=== PATIENT | female | born 1945 | race Caucasian/White ===

== ENCOUNTER → 2018-04-03 | Outpatient (CLI) | payer MEDICARE ==
--- NOTE | 2018-04-06 08:32 | MM ---
Reason for exam: screening (asymptomatic). History: Patient is postmenopausal. Family history of breast cancer in cousin at age 51. Took estrogen for 2 years. MG Screening Mammo w CAD Bilateral CC and MLO view(s) were taken. The breast tissue is heterogeneously dense. This may lower the sensitivity of mammography. There are benign-appearing round vascular bilateral breast calcifications. No discrete abnormality. ASSESSMENT: Benign, BI-RAD 2 RECOMMENDATION: Routine screening mammogram of both breasts in 1 year.
== END | disposition home or self-care (01) ==
LOC: RADMAMWWP 10:46
PROVIDERS: ATTEND Family Medicine
DX: Z12.31 Encounter for screening mammogram for malignant neoplasm of breast (principal)
CPT/HCPCS: 77067

== ENCOUNTER → 2019-12-19 | Outpatient (CLI) | payer MEDICARE ==
--- NOTE | 2019-12-22 10:36 | MM ---
Reason for exam: screening (asymptomatic). Last mammogram was performed 1 year and 9 months ago. History: Patient is postmenopausal. Family history of breast cancer in cousin at age 51. Took estrogen for 2 years. Physical Findings: A clinical breast exam by your physician is recommended on an annual basis and results should be correlated with mammographic findings. MG 3D Screening Mammo W/Cad Bilateral CC and MLO view(s) were taken. Prior study comparison: April 03, 2018, bilateral MG screening mammo w CAD. The breast tissue is heterogeneously dense. This may lower the sensitivity of mammography. There are benign appearing round, vascular calcifications bilaterally. There is no discrete abnormality. ASSESSMENT: Benign, BI-RAD 2 RECOMMENDATION: Routine screening mammogram of both breasts in 1 year.
== END | disposition home or self-care (01) ==
LOC: RADMAMWWP 07:30
PROVIDERS: ATTEND Family Medicine
DX: Z12.31 Encounter for screening mammogram for malignant neoplasm of breast (principal)
CPT/HCPCS: 77063; 77067

== ENCOUNTER → 2020-04-28 | Outpatient (CLI) | payer MEDICARE ==
[2020-04-28 23:30] LABS: Chol/HDL Ratio 3.49
== END | disposition home or self-care (01) ==
LOC: LABWHC1 08:13
PROVIDERS: ATTEND Nurse Practitioner Adult Health
DX: E78.5 Hyperlipidemia, unspecified (principal)
CPT/HCPCS: 36415; 80061

== ENCOUNTER → 2020-05-26 | Outpatient (CLI) | payer MEDICARE ==
[2020-05-26 08:45] LABS: African American GFR (CKD) >90 (>60 ml/min/1.73 sqM); Anion Gap 10 mmol/L; Blood Urea Nitrogen 15 mg/dL (7-17); Carbon Dioxide 30 mmol/L (22-30); Chloride 97 mmol/L (98-107); Non-African American GFR(CKD) 89 (>60 ml/min/1.73 sqM); Potassium 4.9 mmol/L (3.5-5.1); Sodium 137 mmol/L (137-145)
[2020-05-26 08:56] LABS: HCT 38.4 % (34.0-46.0); HGB 13.2 gm/dL (11.4-16.0); MCH 34.2 pg (25.0-35.0); MCHC 34.5 g/dL (31.0-37.0); MCV 99.2 fL (80.0-100.0); Mean Platelet Volume 7.2; Platelet Count 233 k/uL (150-450); RBC 3.87 m/uL (3.80-5.40); RDW 12.3 % (11.5-15.5); WBC 5.6 k/uL (3.8-10.6)
== END | disposition home or self-care (01) ==
LOC: LABPAT 07:20
PROVIDERS: ATTEND Internal Medicine Interventional Cardiology
DX: Z01.812 Encounter for preprocedural laboratory examination (principal); R94.39 Abnormal result of other cardiovascular function study
CPT/HCPCS: 36415; 80051; 82565; 84520; 85027

== ENCOUNTER 2020-05-27 06:18 | Day surgery (SDC) | payer MEDICARE ==
[2020-05-25 10:09] VITALS: BMI 25.4
[~2020-05-27 06:18] MED LIST: ALPRAZolam 0.25 MG TAB PO PRN; ALPRAZolam 0.5 MG TAB PO PRN; HEPARIN SODIUM,PORCINE 10,000 UNIT in SODIUM CHLORIDE 0.9% 1,000 ML IRRIGATION PRN; HEPARIN SODIUM,PORCINE 2,500 UNIT in SODIUM CHLORIDE 0.9% 250 ML IRRIGATION PRN; NITROGLYCERIN SL TABS 0.4 MG TAB SUBLINGUAL PRN; SODIUM CHLORIDE 0.9% 1,000 ML in EMPTY BAG 1 BAG IV ONE
[2020-05-27] MEDS ORDERED: SODIUM CHLORIDE 0.9% 1,000 ML IV ONE (06:35)
[2020-05-27] MEDS ORDERED: ASPIRIN 325 MG TAB PO ONE (07:00)
[2020-05-27] MEDS ORDERED: ATORVASTATIN 80 MG TAB PO ONE (07:00)
[2020-05-27 07:02] LABS: Basophils # (A) 0.1 k/uL (0-0.2); Basophils % (A) 1 %; Eosinophils # (A) 0.4 k/uL (0-0.7); Eosinophils % (A) 6 %; HCT 41.1 % (34.0-46.0); HGB 13.9 gm/dL (11.4-16.0); Lymphocytes # (A) 2.1 k/uL (1.0-4.8); Lymphocytes % (A) 39 %; MCH 33.3 pg (25.0-35.0); MCHC 33.9 g/dL (31.0-37.0); MCV 98.3 fL (80.0-100.0); Mean Platelet Volume 7.1; Monocytes # (A) 0.4 k/uL (0-1.0); Monocytes % (A) 7 %; Neutrophils # (A) 2.4 k/uL (1.3-7.7); Neutrophils % (A) 44 %; Platelet Count 266 k/uL (150-450); RBC 4.18 m/uL (3.80-5.40); WBC 5.5 k/uL (3.8-10.6)
[2020-05-27 07:11] VITALS: RESP 16; TEMP 98.3
[2020-05-27 07:15] LABS: African American GFR (CKD) >90 (>60 ml/min/1.73 sqM); Anion Gap 8 mmol/L; Blood Urea Nitrogen 16 mg/dL (7-17); Calcium 10.1 mg/dL (8.4-10.2); Carbon Dioxide 29 mmol/L (22-30); Chloride 100 mmol/L (98-107); Glucose 104 mg/dL (74-99); Non-African American GFR(CKD) >90 (>60 ml/min/1.73 sqM); Potassium 4.2 mmol/L (3.5-5.1); Sodium 137 mmol/L (137-145)
[2020-05-27] MEDS ORDERED: MIDAZOLAM 2 MG/2 ML VIAL IV ONE (08:10)
[2020-05-27] MEDS: LIDOCAINE 1% INJ 10MG/ML (20 ML MDV) SQ ONE ×2 (08:11→08:16)
[2020-05-27] MEDS ORDERED: VERAPAMIL SYRINGE (5 MG/10 ML) INTRAARTER ONE (08:13)
[2020-05-27] MEDS ORDERED: IOPAMIDOL-370 125ML BTL INJ ONE (08:26)
[2020-05-27] MEDS ORDERED: RX INFO: IV CONTRAST WAS GIVEN 1 EACH MISC MISCELLANE PRN (08:33)
[2020-05-27] MEDS ORDERED: SODIUM CHLORIDE 0.9% 1,000 ML IV SCH (08:45)
--- NOTE | 2020-05-27 09:30 | CC ---
CARDIAC CATHETERIZATION REPORT DATE OF SERVICE: May 27, 2020 PERFORMING PHYSICIAN: Olman Gresham MD. PROCEDURE PERFORMED: 1. Selective right and left coronary angiogram. 2. Left heart catheterization. INDICATION: This is a 74-year-old female patient who continues to be symptomatic in term of chest discomfort and shortness of breath. She underwent myocardial perfusion imaging stress test and that came into be suspicious and because of that, a heart catheterization was advised. APPROACH: Right radial artery and right common femoral artery. COMPLICATION: None. LEVEL OF SEDATION: Moderate with sedation length of 20 minutes. PROCEDURE DESCRIPTION: After obtaining an informed consent, the patient was brought to the cardiac medical lab director. Initially I attempted accessing the right radial artery, but that was unsuccessful and because of that I decided to go from the groin. The right common femoral artery was cannulated using micropuncture technique, the micropuncture wire passed easily then I placed a 6-Hungarian sheath at the right radial artery. After that I did selective right and left coronary angiogram with JR3.5 and JL3.5 catheters. Left heart catheterization was performed using 5-Hungarian pigtail catheter. The procedure was completed without any complication. SELECTIVE CORONARY ANGIOGRAM: 1. The RCA is a large caliber vessel. It is a dominant vessel. The RCA has mild disease only. Distally, it bifurcates into PDA and PLV branches, both appear to be angiographically normal. 2. The left main is angiographically normal. It bifurcates into LCX and LAD. 3. The LCX is a large caliber vessel. It is a nondominant vessel. The LCX is angiographically normal. In the midportion, it gives rise into a large OM branch which bifurcates into 2 subbranches both appeared to be angiographically normal. 4. The LAD: The proximal LAD has mild disease only. The mid LAD has a tubular lesion appeared to be in the range of 40% to 50% maximum. The LAD distally appeared to be angiographically normal. HEMODYNAMICS: The LVEDP was 15 mmHg without significant gradient across the aortic valve. 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 POSTPROCEDURE MANAGEMENT: 1. Aggressive cholesterol control. 2. Risk factor modifications. 3. Follow up with the patient. MMODL / IJN: [id number] /
--- NOTE | 2020-05-27 09:35 | LTR ---
May 27, 2020 Re: Sharonclaudy Wall Dear Dr. Nunez: Ms. Sharon Wall underwent today heart catheterization and that revealed mild to moderate nonobstructive coronary artery disease and I advised the patient maximize medical treatment including aggressive cholesterol control and risk factor modifications. I want to thank you for allowing me to participate in her care and please do not hesitate to call if you have any question or concern. Sincerely, MD AMADA Lopez / SUSAN: [id number] /
[2020-05-27 13:16] VITALS: PULSE 64
[2020-05-27 15:31] VITALS: BP 127/84
== END 2020-05-27 15:29 | disposition home or self-care (01) ==
LOC: CATHCVL 06:18
PROVIDERS: ATTEND Internal Medicine Interventional Cardiology
DX: I25.110 Atherosclerotic heart disease of native coronary artery with unstable angina pectoris (principal); I10 Essential (primary) hypertension; R94.39 Abnormal result of other cardiovascular function study; E78.00 Pure hypercholesterolemia, unspecified; E03.9 Hypothyroidism, unspecified; E78.5 Hyperlipidemia, unspecified; M19.90 Unspecified osteoarthritis, unspecified site; Z79.82 Long term (current) use of aspirin; Z79.890 Hormone replacement therapy; Z79.899 Other long term (current) drug therapy; Z88.6 Allergy status to analgesic agent; Z88.5 Allergy status to narcotic agent; Z88.0 Allergy status to penicillin; Z88.8 Allergy status to other drugs, medicaments and biological substances
CPT/HCPCS: 93458; 80048; 85025; C1769 ×2; C1894; J2250; J2001; Q9967

== ENCOUNTER 2020-09-09 09:22 | Day surgery (SDC) | payer MEDICARE ==
[2020-09-09 10:01] VITALS: RESP 18; TEMP 98.1
[2020-09-09 10:29] VITALS: BP 142/88; PULSE 64
--- NOTE | 2020-09-09 10:42 | US ---
ULTRASOUND GUIDED FNA THYROID BIOPSY: CLINICAL HISTORY: Right thyroid nodule FINDINGS: The procedure was explained to the patient. The risks, complications, benefits and alternatives were discussed and any questions were answered. Informed consent was obtained. Patient was placed supin e on the ultrasound table and prepped and draped in the usual sterile fashion. Utilizing a 25 gauge needle, five passes were made into the requested right thyroid nodule. Patient was stable throughout the procedure. Pathology is pending. All elements of maximal barrier technique were utilized. IMPRESSION: 1. Successful ultrasound guided FNA thyroid biopsy.
== END 2020-09-09 10:50 | disposition home or self-care (01) ==
LOC: RADPROMAIN 09:22
PROVIDERS: ATTEND Family Medicine
DX: D34 Benign neoplasm of thyroid gland (principal)
CPT/HCPCS: 10005; 88173; 88305

== ENCOUNTER 2020-12-17 07:11 | Emergency (ER) | payer MEDICARE ==
[2020-12-17 07:17] VITALS: BP 160/90; PULSE 70; RESP 18; TEMP 98
--- NOTE | 2020-12-17 07:30 | ED ---
General Adult HPI - General Chief complaint: Extremity Injury, Lower Stated complaint: RT foot injury Time Seen by Provider: 12/17/20 07:19 Source: patient Mode of arrival: wheelchair Limitations: no limitations - History of Present Illness Initial comments: Dictation was produced using Efer[employer] dictation software. please excuse any grammatical, word or spelling errors. Chief Complaint: 75-year-old female presents with right foot injury History of Present Illness: Is 75-year-old female she reports that she has a past medical history of fibromyalgia. She this morning was walking in the dark when she tripped over the cat and had an inversion injury to her right foot and ankle. Patient states she had pain. She noticed a little bit of bruising over the dorsum of the foot just over the metatarsal head. Patient has no other complaints. The ROS documented in this emergency department record has been reviewed and confirmed by me. Those systems with pertinent positive or negative responses have been documented in the HPI. All other systems are other negative and/or noncontributory. PHYSICAL EXAM: General Impression: Alert and oriented x3, not in acute distress HEENT: Normocephalic atraumatic, extra-ocular movements intact, pupils equal and reactive to light bilaterally, mucous membranes moist. Musculoskeletal: Pulses present and equal in all extremities, no peripheral edema Motor: no focal deficits noted Neurological: CN II-XII grossly intact, no focal motor or sensory deficits noted Skin: Intact with no visualized rashes Psych: Normal affect and mood Right foot: Small localized area of hematoma over the fifth metatarsal head dorsally. Patient has no tenderness to the malleoli or the base of the fifth metatarsal. ED course: 75-year-old female presents with right foot injury suffered this morning after inversion injury. Vital signs upon arrival are within acceptable limits. Foot x-ray shows comminuted slightly displaced fracture of the distal diaphysis fifth metatarsal. Patient placed in a posterior mold splint. She is counseled on nonweightbearing to the right foot. Patient offered crutches however she states that she can use crutches and she has a wheelchair at home. Patient be discharged with outpatient follow-up with foot and ankle specialist. - Related Data Home Medications Medication Instructions Recorded Confirmed Alendronate Sodium [Fosamax] 70 mg PO TH 05/07/20 09/09/20 Aspirin [Adult Low Dose Aspirin EC] 81 mg PO DAILY 05/07/20 09/09/20 Ezetimibe [Zetia] 10 mg PO DAILY 05/07/20 09/09/20 Levothyroxine Sodium [Synthroid] 50 mcg PO DAILY 05/07/20 09/09/20 Multivitamin/Iron/Folic Acid 1 each PO DAILY 05/07/20 09/09/20 [Centrum Adults Tablet] [place]-3 Fatty Acids [[place]-3] 2 tab PO DAILY 05/07/20 09/09/20 Omeprazole [PriLOSEC] 20 mg PO AC-BRKFST 05/07/20 09/09/20 Allergies Allergy/AdvReac Type Severity Reaction Status Date / Time Penicillins Allergy Rash/Hives Verified 12/17/20 07:12 Sulfa (Sulfonamide Allergy Anaphylaxis Verified 12/17/20 07:12 Antibiotics) meloxicam AdvReac Nausea & Verified 12/17/20 07:12 Vomiting morphine AdvReac Unknown Verified 12/17/20 07:12 tramadol AdvReac Nausea & Verified 12/17/20 07:12 Vomiting dyes on pills Allergy Rash/Hives Uncoded 09/09/20 10:00 Review of Systems ROS Statement: Those systems with pertinent positive or pertinent negative responses have been documented in the HPI. ROS Other: All systems not noted in ROS Statement are negative. Past Medical History Past Medical History: Blood Disorder, Fibromyalgia, GERD/Reflux, Hyperlipidemia, Osteoarthritis (OA), Thyroid Disorder Additional Past Medical History / Comment(s): osteoporosis. short of breath. diverticulitis,. PE - on ASA History of Any Multi-Drug Resistant Organisms: None Reported Past Surgical History: Appendectomy, Heart Catheterization, Hernia Repair, Hysterectomy, Tonsillectomy Past Anesthesia/Blood Transfusion Reactions: Previous Problems w/ Anesthesia, Family History of Problems w/ Anesthesia Additional Past Anesthesia/Blood Transfusion Reaction / Comment(s): hard time waking up after hysterectomy. takes extra anesthesia for brother Past Psychological History: Depression Smoking Status: Never smoker Past Alcohol Use History: Rare Past Drug Use History: None Reported - Past Family History Mother Family Medical History: Cancer Father Family Medical History: Cancer General Exam Limitations: no limitations Course Vital Signs 12/17/20 07:13 Temperature 98 F Pulse Rate 70 Respiratory 18 Rate Blood Pressure 160/90 O2 Sat by Pulse 98 Oximetry Disposition Clinical Impression: Foot fracture Disposition: HOME SELF-CARE Condition: Fair Instructions (If sedation given, give patient instructions): Foot Fracture in Adults (ED) Is patient prescribed a controlled substance at d/c from ED?: No Referrals: Aditya Sanchez MD [Medical Doctor] - 1-2 days
--- NOTE | 2020-12-17 07:59 | XR ---
EXAMINATION TYPE: XR foot complete RT DATE OF EXAM: 12/17/2020 CLINICAL HISTORY: Tripping injury with pain and swelling laterally. TECHNIQUE: Frontal, lateral, and oblique images of the left foot are obtained. COMPARISON: None FINDINGS: The osseous structures are demineralized. There is no acute comminuted slightly displaced f racture of distal diaphysis fifth metatarsal. Small inferior calcaneal spur. Flexion in the toes. The joint spaces in the left foot appear within normal limits. Mild diffuse subcutaneous edema. IMPRESSION: There is acute comminuted slightly displaced fracture distal diaphysis fifth metatarsal.
== END 2020-12-17 08:39 | disposition home or self-care (01) ==
LOC: EC 07:11
DX: S92.351A Displaced fracture of fifth metatarsal bone, right foot, initial encounter for closed fracture (principal); E78.5 Hyperlipidemia, unspecified; K21.9 Gastro-esophageal reflux disease without esophagitis; M19.90 Unspecified osteoarthritis, unspecified site; E07.9 Disorder of thyroid, unspecified; M81.0 Age-related osteoporosis without current pathological fracture; F32.9 Major depressive disorder, single episode, unspecified; Z79.82 Long term (current) use of aspirin; Z88.0 Allergy status to penicillin; Z88.1 Allergy status to other antibiotic agents; Z88.2 Allergy status to sulfonamides; Z88.5 Allergy status to narcotic agent; Z90.49 Acquired absence of other specified parts of digestive tract; Z90.710 Acquired absence of both cervix and uterus; Z90.89 Acquired absence of other organs; W01.10XA Fall on same level from slipping, tripping and stumbling with subsequent striking against unspecified object, initial encounter; Y93.01 Activity, walking, marching and hiking
CPT/HCPCS: 29515; 99283

== ENCOUNTER → 2020-12-24 | Outpatient (CLI) | payer MEDICARE | END | disposition home or self-care (01) | LOC: LABWHC1 13:08 | PROVIDERS: ATTEND Orthopaedic Surgery | DX: M79.671 Pain in right foot (principal) | CPT/HCPCS: 36415; 82306 ==

== ENCOUNTER → 2021-02-18 | Outpatient (CLI) | payer MEDICARE ==
--- NOTE | 2021-02-22 10:10 | MM ---
Reason for exam: screening (asymptomatic). Last mammogram was performed 1 year and 2 months ago. History: Patient is postmenopausal. Family history of breast cancer in cousin at age 51. Took hormonal contraceptives for 3 years. Took estrogen for 2 years. Physical Findings: A clinical breast exam by your physician is recommended on an annual basis and results should be correlated with mammographic findings. MG Screening Mammo w CAD Bilateral CC and MLO view(s) were taken. Prior study comparison: December 19, 2019, bilateral MG 3d screening mammo w/cad. April 03, 2018, bilateral MG screening mammo w CAD. The breast tissue is heterogeneously dense. This may lower the sensitivity of mammography. No significant changes when compared with prior studies. ASSESSMENT: Benign, BI-RAD 2 RECOMMENDATION: Routine screening mammogram of both breasts in 1 year.
== END | disposition home or self-care (01) ==
LOC: RADMAMWWP 07:56
PROVIDERS: ATTEND Family Medicine
DX: Z12.31 Encounter for screening mammogram for malignant neoplasm of breast (principal)
CPT/HCPCS: 77067

== ENCOUNTER → 2021-03-22 | Outpatient (CLI) | payer MEDICARE ==
[2021-03-22 12:56] LABS: Chol/HDL Ratio 2.45 Ratio; LDL Cholesterol,Calculated 88.8 mg/dL (0.0-131.0)
== END | disposition home or self-care (01) ==
LOC: LABWHC1 07:14
PROVIDERS: ATTEND Nurse Practitioner Adult Health
DX: E78.5 Hyperlipidemia, unspecified (principal)
CPT/HCPCS: 36415; 80061

== ENCOUNTER → 2021-06-09 | Outpatient (CLI) | payer MEDICARE ==
--- NOTE | 2021-06-09 10:34 | MR ---
EXAMINATION TYPE: MR shoulder RT wo con DATE OF EXAM: 06/09/2021 COMPARISON: No radiographic correlation available HISTORY: 75-year-old female M67.813, Right shoulder pain 3-4 Months TECHNIQUE: Multiplanar, multisequence imaging of the right shoulder is performed without contrast. FINDINGS: The technologist reports that the patient was moving due to spasms. Coronal sequences repeated. There is an interstitial tear within the intracapsular portion of the biceps tendon that extends to t he biceps anchor. There is slight medial subluxation of the tendon within the bicipital secondary to interstitial teari ng of the subscapularis tendon. The subscapularis tendon is heterogeneous but the majority remains in tact. There is moderate to severe degenerative change at the AC joint characterized by joint space narrowin g, subchondral cystic change, small joint effusion, marginal spurring, and capsular hypertrophy. Ther e is impingement onto the underlying myotendinous junction of the supraspinatus. Trace fluid within the subacromial/subdeltoid bursa. Diffuse heterogeneity of both supraspinatus and infraspinatus tendons. There is a tear involving the mid to posterior supraspinatus tendon fibers. Anteriorly, this shows articular sided communication. T he tear shows intrasubstance extension posteriorly measuring up to 1.3 cm long-and appears to exit th e bursal surface on coronal images 14 and 15. Total AP dimension of 1.6 cm. The infraspinatus tendon appears intact. No significant atrophy of the rotator cuff musculature. There is at least moderate degenerative change at the glenohumeral joint with irregular cartilage los s throughout, more severe along the superior half of the humeral head articular surface. Subchondral cystic change inferior glenoid measuring up to 6 mm. Minimal spurring is present. Irregular and torn superior labrum extending from the biceps anchor down to the superior aspect of th e posterior labrum. Mild linear multiple joint effusion. Inferior loose body measures up to 7 mm within the axillary rece ss. No Hill-Sachs deformity or os acromiale. Prominent cystic change within the anterior greater tuberosi ty reactive to rotator cuff tendinosis. No suspicious bone marrow replacement. IMPRESSION: 1. Diffuse rotator cuff tendinosis. There is a tear of the supraspinatus tendon that communicates wit h the articular side at the mid portion of the tendon. The tear extends back and exits the bursal bartolo face posteriorly (total dimension 1.6 cm AP and up to 1.3 cm long). 2. Additional attritional tear of the subscapularis tendon allowing for slight medial subluxation of the long head biceps tendon in the upper bicipital groove. No rotator cuff muscle atrophy. 3. Moderate glenohumeral joint OA. Mild joint effusion and a 7 mm loose body in the axillary recess. 4. Superior labral tear extending into the biceps anchor and proximal long head biceps tendon. 5. Moderate to severe AC joint OA with subacromial impingement.
== END | disposition home or self-care (01) ==
LOC: RADMRIMAIN 07:36
PROVIDERS: ATTEND Internal Medicine Rheumatology
DX: M19.011 Primary osteoarthritis, right shoulder (principal); S43.431A Superior glenoid labrum lesion of right shoulder, initial encounter; M24.011 Loose body in right shoulder; M25.411 Effusion, right shoulder; S43.111A Subluxation of right acromioclavicular joint, initial encounter; M75.111 Incomplete rotator cuff tear or rupture of right shoulder, not specified as traumatic; X58.XXXA Exposure to other specified factors, initial encounter

== ENCOUNTER → 2022-02-27 | Outpatient (CLI) | payer MEDICARE ==
[2022-02-27 11:15] LABS: African American GFR (CKD) 101.2 (60.0-200.0); Albumin 4.9 g/dL (3.8-4.9); Albumin/Globulin Ratio 1.96 (1.60-3.17); Anion Gap 10.8 mmol/L (10.00-18.00); BUN/Creat Ratio 21.83 Ratio (12.00-20.00); Blood Urea Nitrogen 13.1 mg/dL (9.0-27.0); Calcium 10.4 mg/dL (8.7-10.3); Carbon Dioxide 27.2 mmol/L (20.0-27.5); Globulin 2.5 g/dL (1.6-3.3); Non-African American GFR(CKD) 87.3 (60.0-200.0); Potassium 4.4 mmol/L (3.5-5.5); T4, Free (Free Thyroxine) 1.38 ng/dL (0.800-1.800); Total Bilirubin 0.6 mg/dL (0.30-1.20); Total Protein 7.4 g/dL (6.2-8.2)
== END | disposition home or self-care (01) ==
LOC: LABWHC1 07:46
PROVIDERS: ATTEND Internal Medicine
DX: M81.0 Age-related osteoporosis without current pathological fracture (principal); E04.2 Nontoxic multinodular goiter; E55.9 Vitamin D deficiency, unspecified
CPT/HCPCS: 36415; 80053; 82306; 82523; 84439; 84443

== ENCOUNTER → 2022-03-01 | Outpatient (CLI) | payer MEDICARE ==
--- NOTE | 2022-03-01 09:33 | US ---
EXAMINATION TYPE: US thyroid st tissue head/neck DATE OF EXAM: 03/01/2022 COMPARISON: US biopsy CLINICAL HISTORY: E04.2 NONTOXIC MULTINODULAR GOITER. GLAND SIZE: Right Lobe: 4.7 x 1.8 x 2.5 cm Overall Parenchyma: heterogenous Left Lobe: 4.4 x 1.0 x 2.7 cm Overall Parenchyma: heterogeneous Isthmus Thickness: 0.3 cm NODULES RIGHT: # of nodules measured on right: 1. 1.0 X 0.8 x 0.9 cm, upper, solid or almost completely solid, No prior at this facility. TIRADS Score: 4 TIRADS Category 4: Moderately Suspicious Composition: Solid or almost completely solid (2 points). Echogenicity: Hypoechoic (2 points). Shape: Wider than tall (0 points). Margin: Smooth (0 points). Echogenic foci: None or large comet-tail artifacts (0 points) Recommendation: If >1.5cm: FNA; If >1cm: Follow up at 1,3,5 years 2. 2.2 X 1.4 x 1.8 cm, lower, No prior at this facility. TIRADS Score: 3 TIRADS Category 3: Mildly Suspicious Composition: Solid or almost completely solid (2 points). Echogenicity: Hyperechoic or isoechoic (1 point). Shape: Wider than tall (0 points). Margin: Smooth (0 points). Echogenic foci: None or large comet-tail artifacts (0 points) Recommendation: If >2.5cm: FNA; If >1.5cm: Follow up at 1,3,5 years LEFT: # of nodules measured on left: 1 1. 1.3 X 0.8 x 1.1 cm, mid, solid or almost completely solid, No prior at this facility. TIRADS Score: 3 TIRADS Category 3: Mildly Suspicious Composition: Solid or almost completely solid (2 points). Echogenicity: Hyperechoic or isoechoic (1 point). Shape: Wider than tall (0 points). Margin: Smooth (0 points). Echogenic foci: None or large comet-tail artifacts (0 points) Recommendation: If >2.5cm: FNA; If >1.5cm: Follow up at 1,3,5 years ISTHMUS: # of nodules measured in the isthmus: 0 Bilateral neck scanned, no evidence of lymphadenopathy. IMPRESSION: Bilateral thyroid nodules that meet criteria for one-year follow-up. 2017 ACR TI-RADS LEVEL: TR-RADS 4 - Moderately Suspicious: Follow if > 1 cm, FNA if > 1.5 cm *Highest TI-RADS level nodule reported
== END | disposition home or self-care (01) ==
LOC: RADUSWWP 08:36
PROVIDERS: ATTEND Internal Medicine
DX: E04.2 Nontoxic multinodular goiter (principal)
CPT/HCPCS: 76536

== ENCOUNTER → 2022-03-15 | Outpatient (CLI) | payer MEDICARE ==
--- NOTE | 2022-03-15 18:32 | MM ---
Reason for Exam: Screening (asymptomatic). Last mammogram was performed 1 year(s) and 1 month(s) ago. Patient History: Menarche at age 11. First Full-Term at age 16. Left ovary removed at age 31. Right ovary removed at age 31. Hysterectomy at age 31. Postmenopausal. Patient used Estrogen for 2 years. Patient used Hormonal Contraceptives for 3 years. Maternal cousin had breast cancer, age 51. Risk Values: Maddy 5 year model risk: 1.2%. NCI Lifetime model risk: 2.2%. Prior Study Comparison: 04/03/2018 Bilateral Screening Mammogram, [facility]. 12/19/2019 Bilateral Screening Mammogram, [facility]. 02/18/2021 Bilateral Screening Mammogram, [facility]. Tissue Density: The breast tissue is heterogeneously dense. This may lower the sensitivity of mammography. Findings: Analyzed By CAD. There is focal asymmetries in the outer breasts. Benign vascular calcifications present. Bilateral punctate calcifications are present. No suspicious groups of microcalcifications, spiculated or lobular masses, architectural distortion or other secondary signs of malignancy are mammographically apparent. Overall Assessment: Benign, BI-RAD 2 Management: Screening Mammogram of both breasts in 1 year. A negative mammogram report should not preclude additional follow up of suspicious palpable abnormalities. Patient should continue monthly self breast exam. A clinical breast exam by your physician is recommended on an annual basis and results should be correlated with mammographic findings. Electronically signed and approved by: Aroldo Castillo D.O. Radiologis
== END | disposition home or self-care (01) ==
LOC: RADMAMWWP 07:41
PROVIDERS: ATTEND Family Medicine
DX: Z12.31 Encounter for screening mammogram for malignant neoplasm of breast (principal); Z78.0 Asymptomatic menopausal state; Z80.3 Family history of malignant neoplasm of breast; Z90.721 Acquired absence of ovaries, unilateral
CPT/HCPCS: 77063; 77067

== ENCOUNTER 2022-10-23 06:21 | Day surgery (SDC) | payer MEDICARE ==
[2022-10-18 13:44] VITALS: BMI 24.7
[2022-10-23] MEDS ORDERED: ALPRAZolam 0.25 MG TAB PO PRN (06:55)
[2022-10-23] MEDS ORDERED: SODIUM CHLORIDE 0.9% 1,000 ML in EMPTY BAG 1 BAG IV SCH (06:55)
[2022-10-23] MEDS ORDERED: ALPRAZolam 0.5 MG TAB PO PRN (06:55)
[2022-10-23] MEDS ORDERED: NITROGLYCERIN SL TABS 0.4 MG TAB SUBLINGUAL PRN (06:55)
[2022-10-23] MEDS ORDERED: MIDAZOLAM 2 MG/2 ML VIAL IVP ONE (07:38)
[2022-10-23] MEDS ORDERED: LIDOCAINE 1% INJ 10MG/ML (20 ML MDV) SQ ONE (07:41)
[2022-10-23] MEDS ORDERED: HEPARIN SODIUM 1,000 UN/ML (10ML VL) IV ONE (07:53)
[2022-10-23 08:01] VITALS: TEMP 98.1
[2022-10-23] MEDS ORDERED: NITROGLYCERIN 1000MCG/10ML SYRINGE INTRACORON ONE (08:15)
[2022-10-23] MEDS ORDERED: IOPAMIDOL-370 100ML BTL INJ ONE (08:20)
[2022-10-23] MEDS ORDERED: RX INFO: IV CONTRAST WAS GIVEN 1 EACH MISC MISCELLANE PRN (08:22)
--- NOTE | 2022-10-23 08:27 | P.PCN ---
Date of Procedure: 10/23/22 Operative Findings: CARDIAC CATHETERIZATION PERFORMING PHYSICIAN: Olman Gresham MD, RPVI PROCEDURE PERFORMED: 1. Selective right and left coronary angiogram 2. Left heart catheterization 3. iFR of the LAD and RCA 4. Ultrasound-guided access of the right common femoral artery and right common femoral artery angiogram INDICATION: Chest discomfort in this 76-year-old female patient with CAD and known intermediate disease involving the RCA and LAD who underwent myocardial perfusion imaging stress test came in to be abnormal showing an anterior ischemia COMPLICATION: None APPROACH: Right common femoral artery LEVEL OF SEDATION: Moderate with sedation in length of 48 minutes PROCEDURE DESCRIPTION: After obtaining an informed consent, the patient was brought to cardiac cardiac cath technologist. Local anesthesia was performed using lidocaine subcutaneously. The right common femoral artery was cannulated using Seldinger technique, the guidewire passed easily, following that we advanced a 6 Irish sheath dilator assembly, the wire and dilator were removed and sheath was flushed. Selective right and left coronary angiogram using a 6-Irish JR4 and JL catheters. Following that we did left heart catheterization using 6-Irish pigtail catheter. After that and FFR of the LAD and RCA performed The procedure was completed there was no complication. SELECTIVE CORONARY ANGIOGRAM: The right coronary artery: Large caliber vessel and a dominant vessel. The mid RCA has intermediate disease only. Left main: Is angiographically normal. Bifurcates into an LCx and LAD The left circumflex: Large caliber vessel nondominant vessel. The LCx is angiographically normal and gives rises into an OM which bifurcates into 2 subbranches both appears to be angiographically normal The left anterior descending artery: Proximal LAD has mild disease only. The mid LAD has intermediate lesion appears to be in the range of 50%. HEMODYNAMICS: The LVEDP was 6 mmHg was no significant gradient across aortic valve FFR OF THE LAD AND RCA After zeroing the Doppler wire and equalizing between the Doppler wire and guiding catheter which was JL4 guiding catheter we did engage the left main and wire the LAD and the iFR came in to be an 0.94. Subsequently we did the same thing for the RCA and that came in to be is 0.98. That was performed using JR 3.5 guiding catheter. The procedure was completed was no complication CONCLUSION: 1. Intermediate disease involving the LAD. Its documented to be [id number] by Doppler wire 2. Intermediate disease involving the mid RCA. Its documented also to be [id number] by Doppler wire 3. Normal left-sided filling pressure POSTPROCEDURE MANAGEMENT: Medical treatment
[2022-10-23] MEDS ORDERED: SODIUM CHLORIDE 0.9% 1,000 ML IV SCH (08:30)
[2022-10-23 13:58] VITALS: RESP 16
[2022-10-23 19:18] VITALS: BP 153/69; PULSE 74
== END 2022-10-23 16:52 | disposition home or self-care (01) ==
LOC: CATHCVL 06:21
PROVIDERS: ATTEND Internal Medicine Interventional Cardiology
DX: I25.10 Atherosclerotic heart disease of native coronary artery without angina pectoris (principal); I10 Essential (primary) hypertension; E78.5 Hyperlipidemia, unspecified; Z79.82 Long term (current) use of aspirin; Z79.899 Other long term (current) drug therapy
CPT/HCPCS: 93458; 93799; 76937; 85347; C1887 ×2; C1769 ×4; C1894; J2250; J2001; J1644; Q9967; J2305

== ENCOUNTER → 2022-11-06 | Outpatient (CLI) | payer MEDICARE ==
[2022-11-06 16:01] LABS: INR 0.9 (<1.2); Partial Thromboplastin Time 22.2 sec (22.0-30.0); Prothrombin Time 9.8 sec (9.0-12.0)
[2022-11-06 19:51] LABS: HCT 38.2 % (37.2-46.3); HGB 13.1 d/dL (12.0-15.0); MCH 33.5 pg (27.0-32.0); MCHC 34.3 d/dL (32.0-37.0); MCV 97.7 FL (80.0-97.0); NRBC Per 100 WBC 0 X 10*3/uL (0.00-0.01); Platelet Count 255 X 10*3/uL (140-440); RBC 3.91 X 10*6/uL (4.10-5.20); RDW 12.6 % (11.5-14.5); WBC 7.73 X 10*3/uL (4.50-10.00)
[2022-11-06 19:58] LABS: ALT 23 U/L (8-44); AST 19 U/L (13-35); Albumin 4.9 d/dL (3.8-4.9); Albumin/Globulin Ratio 2.45 Ratio (1.60-3.17); Alkaline Phosphatase 51 U/L (41-126); Blood Urea Nitrogen 18.9 mg/dL (9.0-27.0); Carbon Dioxide 25.2 mmol/L (21.6-31.8); Chloride 103 mmol/L (96-109); Glucose 120 mg/dL (70-110); Potassium 4.4 mmol/L (3.5-5.5); Sodium 139 mmol/L (135-145); Total Bilirubin 0.3 mg/dL (0.3-1.2); Total Protein 6.9 d/dL (6.2-8.2)
== END | disposition home or self-care (01) ==
LOC: LABPAT 13:56
PROVIDERS: ATTEND Orthopaedic Surgery
DX: Z01.818 Encounter for other preprocedural examination (principal); M17.12 Unilateral primary osteoarthritis, left knee
CPT/HCPCS: 36415; 80053; 85027; 85610; 85730; 87070; 93005

== ENCOUNTER → 2022-11-06 | Outpatient (CLI) | payer MEDICARE ==
--- NOTE | 2022-11-06 20:57 | CT ---
EXAMINATION TYPE: CT left knee - [facility] Protocol CT DLP: 588 mGycm, Automated exposure control for dose reduction was used. DATE OF EXAM: 11/06/2022 2:12 PM COMPARISON: None CLINICAL INDICATION:Female, 76 years old with history of M25.562 PAIN IN LEFT KNEE; PHH, pre-op left total knee TECHNIQUE: Axial images were obtained of the left knee . Additional coronal and sagittal reformatted images and soft tissue and bone window were obtained for review. Contrast used: None Oral contrast used: None FINDINGS: Visualized portions of the pelvis demonstrate severe atherosclerotic disease. The hips demo nstrate demonstrate mild degeneration changes with osteophyte formation. Mild joint space narrowing. The left knee demonstrates degeneration changes with osteophyte formation joint space narrowing and s ubchondral sclerosis. There is at least 2 joint bodies noted. in the posterior aspect of the medial f emoral condyle measuring up to 7 mm. Visualized portions of the left ankle demonstrate degeneration of the tibiotalar joint no evidence of fracture. Remote injury to the right distal fibula with well-corticated osseous body present. No evidence of fracture. IMPRESSION: Moderate to severe degeneration changes of the left knee.
== END | disposition home or self-care (01) ==
LOC: RADCTMAIN 13:18
PROVIDERS: ATTEND Orthopaedic Surgery
DX: Z01.818 Encounter for other preprocedural examination (principal); M17.0 Bilateral primary osteoarthritis of knee; M79.7 Fibromyalgia

== ENCOUNTER → 2022-11-10 | Outpatient (CLI) | payer MEDICARE | END | disposition home or self-care (01) | LOC: LABWHC1 06:49 | PROVIDERS: ATTEND Orthopaedic Surgery | DX: Z01.818 Encounter for other preprocedural examination (principal); M17.12 Unilateral primary osteoarthritis, left knee | CPT/HCPCS: 87086 ==

== ENCOUNTER → 2023-01-10 | Outpatient (CLI) | payer MEDICARE ==
--- NOTE | 2023-01-10 09:46 | BD ---
EXAMINATION TYPE: Axial Bone Density DATE OF EXAM: 01/10/2023 CLINICAL HISTORY: 77 years old Female. ICD-10 CODE: M81.0 age related osteoporosis Height: 5 ft Weight: 124 FRAX RISK QUESTIONS: Alcohol (3 or more units per day): no Family History (Parent hip fracture): yes Glucocorticoids (More than 3mos): no (Ex: prednisone, prednisolone, methylprednisolone, dexamethasone, and hydrocortisone). History of Fracture in Adulthood: yes Secondary Osteoporosis: 1. Type 1 Diabetes: no 2. Hyperthyroidism: no 3. Menopause before 45: yes 4. Malnutrition: no 5. Chronic liver disease: no Rheumatoid Arthritis: yes Current Tobacco Use: no RISK FACTORS HISTORY OF: Surgery to Spine/Hip(right/left)/Wrist (right/left): no Family History of Osteoporosis: yes Active: yes Diet low in dairy products/other sources of calcium: no Postmenopausal woman: yes Take estrogen and/or progesterone medications: none now Lost more than 2 inches in height since high school: no Frequent falls: no Poor Health: good Hyperparathyroidism: no Adrenal Insufficiency: no MEDICATIONS: Thyroid Medications: yes Which medication: levothyroxine How Long: since 1994 Additional Medications: levothyroxine,omeprazole,omega 3 ethylesters, alendronate sodium, pravastatin , Additional History: pt has been on bone density meds for 5 years EXAM MEASUREMENTS: Bone mineral densitometry was performed using the [employer]. Bone mineral density as measured about the Lumbar spine is: ----- L1-L4(G/cm2): 1.096 T Score Values are as follows: ----- L1: -1.0 ----- L2: 0.0 ----- L3: 0.0 ----- L4: -1.8 ----- L1-L4: -0.7 Z Score Values are as follows: ----- L1: 1.1 ----- L2: 2.1 ----- L3: 2.1 ----- L4: 0.4 ----- L1-L4: 1.4 previous done elsewhere Bone mineral density about the R hip (g/cm2): 0.603 Bone mineral density about the L hip (g/cm2): 0.624 T Score values are as follows: -----R Neck: -3.1 -----L Neck: -3.0 -----R Total: -2.7 -----L Total: -2.5 Z Score values are as follows: -----R Neck: -0.8 -----L Neck: -0.7 -----R Total: -0.5 -----L Total: -0.4 previous done elsewhere FRAX%s: The graph provided illustrates a 59.7 % chance for a major osteoporotic fx and a 47.5 % chanc e for the hips probability for fx in 10 years time. IMPRESSION: Osteoporosis (T Score less than -2.5). There is increased fracture risk and therapy is usually indicated based on age. Re-Screen 1-2 years. NOTE: T-SCORE=SD OF THE YOUNG ADULT MEAN.
== END | disposition home or self-care (01) ==
LOC: RADBDWWP 07:23
PROVIDERS: ATTEND Family Medicine
DX: M81.0 Age-related osteoporosis without current pathological fracture (principal); Z78.0 Asymptomatic menopausal state
CPT/HCPCS: 77080

== ENCOUNTER → 2023-01-19 | Day surgery (SDC) | payer MEDICARE ==
[~2023-01-19] MED LIST changes: -ALPRAZolam 0.25 MG TAB PO PRN; -ALPRAZolam 0.5 MG TAB PO PRN; +DEXAMETHASONE SOD PHOSPHATE 4 MG/ML 1 ML VIAL IV ONE; +DEXAMETHASONE SOD PHOSPHATE 4 MG/ML 1 ML VIAL IVP ONE; -HEPARIN SODIUM,PORCINE 10,000 UNIT in SODIUM CHLORIDE 0.9% 1,000 ML IRRIGATION PRN; -HEPARIN SODIUM,PORCINE 2,500 UNIT in SODIUM CHLORIDE 0.9% 250 ML IRRIGATION PRN; +HYDROmorphone (PF) 1 MG/ML ONE; +LACTATED RINGERS 1,000 ML IV ONE; +LACTATED RINGERS 1,000 ML IV SCH; +LIDOCAINE 1% INJ 10MG/ML (20 ML MDV) ONE; +MIDAZOLAM 2 MG/2 ML VIAL IV PRN; -NITROGLYCERIN SL TABS 0.4 MG TAB SUBLINGUAL PRN; +ONDANSETRON 4 MG/2 ML VIAL IVP ONE; +ONDANSETRON 4 MG/2 ML VIAL ONE; +PROPOFOL 10 MG/ML 20 ML VIAL IV ONE; +Pre Op ABX Message 1 EACH MISC MISCELLANE ONE; -SODIUM CHLORIDE 0.9% 1,000 ML in EMPTY BAG 1 BAG IV ONE; +SODIUM CHLORIDE 0.9% 100 ML BAG ONE; +SODIUM CHLORIDE 0.9% 50 ML with ceFAZolin 1,000 MG IV ONE; +SUCCINYLCHOLINE CHLORIDE 200 MG/10 ML VIAL IV ONE; +ceFAZolin 1,000 MG VIAL ONE; +ePHEDrine 50 MG/ML 1 ML VIAL ONE; +fentaNYL (PF) 50 MCG/ML 2 ML AMP IV PRN; +fentaNYL (PF) 50 MCG/ML 2 ML AMP ONE
[2023-01-19 10:50] VITALS: TEMP 97.8
[2023-01-19 11:04] LABS: Basophils % (A) 1 %; Eosinophils # (A) 0.3 k/uL (0-0.7); Eosinophils % (A) 6 %; HCT 35.1 % (34.0-46.0); HGB 12.1 gm/dL (11.4-16.0); Lymphocytes # (A) 1.7 k/uL (1.0-4.8); Lymphocytes % (A) 31 %; MCH 34.4 pg (25.0-35.0); MCHC 34.5 g/dL (31.0-37.0); MCV 99.8 fL (80.0-100.0); Mean Platelet Volume 7.3; Monocytes # (A) 0.3 k/uL (0-1.0); Monocytes % (A) 6 %; Neutrophils % (A) 55 %; Platelet Count 265 k/uL (150-450); RBC 3.52 m/uL (3.80-5.40); RDW 12.3 % (11.5-15.5); WBC 5.5 k/uL (3.8-10.6)
--- NOTE | 2023-01-19 12:28 | P.OP ---
Date of Procedure: 01/19/23 Preoperative Diagnosis: 1. Delayed wound healing with superficial breakdown following left total knee replacement Postoperative Diagnosis: Same Procedure(s) Performed: 1. Irrigation and excisional debridement left knee (an excisional debridement of nonviable skin and subcutaneous tissue down to the level of fascia using a scalpel) and revision closure 2. Application of negative pressure incisional wound VAC less than 50 cm left knee (incision length 20 cm) Anesthesia: ROSAMARIA Surgeon: Aditya Sanchez Game Preserve Manager #1: Hardeep Nowak Estimated Blood Loss (ml): 20 IV fluids (ml): 800 Pathology: none sent Condition: stable Disposition: PACU Indications for Procedure: The patient is a very pleasant 3 was healthy 77-year-old female who underwent an uncomplicated left total knee replacement on 12/01/2022. Her initial postop erative course was uncomplicated but then she developed delayed wound healing and superficial wound breakdown over the proximal third of the incision. She was initially treated with local wound care and antibiotics but her incision failed to fully heal. I saw the patient this previous Sunday. I aspirated her left knee and the results came back with 25 nucleated cells and 6% PMNs. This was well below the threshold for both acute and chronic infection based on the MSIS criteria. The cultures also were negative. My recommendation was to debride her incision down to the fascia and reclose her incision as well as place an incisional wound VAC. Since there was no sign of deep infection I did not plan on opening the capsule and exchanging the poly-based on her aspiration. We discussed the potential risks and Locations of surgery at length including continued issues with delayed wound healing, superficial infection, damage to local blood vessels or nerves, and the possibility of deep infection. Operative Findings: There is superficial wound breakdown over the proximal third of the incision. There was a large dry eschar. The wound did not track below the fascia. Description of Procedure: The patient is a in preoperative holding and the correct left lower extremity was marked with my initials. I reviewed the consent with the patient and all of her questions were answered. The patient was then brought back to the operating room. She was positioned on the OR table where general anesthetic and preoperative antibiotics were given. A tourniquet was applied to the proximal aspect of the left leg. Left leg was then prepped and draped in the standard sterile fashion. Prior to starting surgery timeout was performed identifying the correct patient, operative extremity, and procedure. The patient's leg was then elevated for 2 minutes and then tourniquet was inflated to 250 mmHg. I began by outlining the entire length of the incision excising out the areas of breakdown and eschar. Skin incision strength a scalpel. Dissection was carried down to subcutaneous tissue in the area of nonhealing wound and eschar was sh arply excised with a scalpel. The wound did not appear to track deep to the fascia. There is no evidence of gross purulence or infection. An excisional debridement was then performed using a scalpel of all nonviable skin and subcutaneous tissue down to the level of the fascia. The wound was then thoroughly irrigated using 3 L of sterile saline and cystoscopy tubing. Once the incision and wound appeared clean a layered closure was performed using running monofilament barbed sutures. The skin incision was reinforced with 30 nylons. I verified that all instrument, sponge, and sharp counts were correct. An incisional wound VAC was then placed over the incision measuring 20 cm. The patient was then awoken from her anesthetic, transferred from the OR table to the [facility], and brought to recovery having tolerated the procedure well. Hardeep Nowak PA-C was required as a skilled parking assistant for patient positioning, draping, exposure, closure of wound, and application of dressing. PLAN: The patient is going to attempt to discharge home this evening. She can weight-bear as tolerated on her left leg. Her incisional wound VAC will stay in place for 2 weeks. Her going to send her home on doxycycline 100 mg twice a day until her incision heals. A follow-up in the office in 2 weeks for a wound check. She does not need a doctor's at that time.
[2023-01-19 15:44] VITALS: BP 147/78; PULSE 71; RESP 14
== END | disposition home or self-care (01) ==
LOC: OR 09:58
PROVIDERS: ATTEND Orthopaedic Surgery
DX: S80.912D Unspecified superficial injury of left knee, subsequent encounter (principal); M79.7 Fibromyalgia; I20.9 Angina pectoris, unspecified; E78.5 Hyperlipidemia, unspecified; E07.9 Disorder of thyroid, unspecified; F17.200 Nicotine dependence, unspecified, uncomplicated; Z88.5 Allergy status to narcotic agent; Z88.2 Allergy status to sulfonamides; Z88.6 Allergy status to analgesic agent; Z90.710 Acquired absence of both cervix and uterus; Z79.82 Long term (current) use of aspirin; Z79.890 Hormone replacement therapy; Z96.652 Presence of left artificial knee joint; Z79.899 Other long term (current) drug therapy
CPT/HCPCS: 11043; 84132; 85025; J0330; J1100; J2405; J0690; J2001; J3010; J1170; J2704

== ENCOUNTER → 2023-04-23 | Outpatient (CLI) | payer MEDICARE ==
--- NOTE | 2023-04-23 22:51 | MM ---
Reason for Exam: Screening (asymptomatic). Last mammogram was performed 1 year(s) and 1 month(s) ago. Patient History: Menarche at age 11. First Full-Term at age 16. Left ovary removed at age 31. Right ovary removed at age 31. Hysterectomy at age 31. Postmenopausal. Patient used Estrogen for 2 years. Patient used Hormonal Contraceptives for 3 years. Paternal cousin had breast cancer, age 51. Risk Values: Maddy 5 year model risk: 1.2%. NCI Lifetime model risk: 2.0%. Prior Study Comparison: 04/03/2018 Bilateral Screening Mammogram, [facility]. 12/19/2019 Bilateral Screening Mammogram, [facility]. 02/18/2021 Bilateral Screening Mammogram, [facility]. 03/15/2022 Bilateral MG 3D screening mammo w/cad, [facility]. Tissue Density: The breast tissue is heterogeneously dense. This may lower the sensitivity of mammography. Findings: Analyzed By CAD. The pattern is symmetrical. Focal asymmetries are within the left and right breast. Multiple benign vascular and punctate calcifications are present. No significant interval changes are evident. No suspicious groups of microcalcifications, spiculated or lobular masses, architectural distortion or other secondary signs of malignancy are mammographically apparent. Overall Assessment: Benign, BI-RAD 2 Management: Screening Mammogram of both breasts in 1 year. A negative mammogram report should not preclude additional follow up of suspicious palpable abnormalities. Patient should continue monthly self breast exam. A clinical breast exam by your physician is recommended on an annual basis and results should be correlated with mammographic findings. Electronically signed and approved by: Aroldo Castillo D.O. Radiologis
== END | disposition home or self-care (01) ==
LOC: RADMAMWWP 09:28
PROVIDERS: ATTEND Family Medicine
DX: Z12.31 Encounter for screening mammogram for malignant neoplasm of breast (principal); Z80.3 Family history of malignant neoplasm of breast; Z78.0 Asymptomatic menopausal state
CPT/HCPCS: 77063; 77067

== ENCOUNTER → 2024-05-19 | Day surgery (SDC) | payer MEDICARE ==
[2024-05-14 16:02] VITALS: BMI 23.1
[~2024-05-19] MED LIST changes: +ALPRAZolam 0.25 MG TAB PO PRN; +ALPRAZolam 0.5 MG TAB PO PRN; -DEXAMETHASONE SOD PHOSPHATE 4 MG/ML 1 ML VIAL IV ONE; -DEXAMETHASONE SOD PHOSPHATE 4 MG/ML 1 ML VIAL IVP ONE; +HEPARIN SODIUM,PORCINE (1 ML) 2,500 UNIT in SODIUM CHLORIDE 0.9% 250 ML IRRIGATION PRN; +HEPARIN SODIUM,PORCINE 10,000 UNIT in SODIUM CHLORIDE 0.9% 1,000 ML IRRIGATION PRN; -HYDROmorphone (PF) 1 MG/ML ONE; -LACTATED RINGERS 1,000 ML IV ONE; -LACTATED RINGERS 1,000 ML IV SCH; -LIDOCAINE 1% INJ 10MG/ML (20 ML MDV) ONE; -MIDAZOLAM 2 MG/2 ML VIAL IV PRN; +NITROGLYCERIN SL TABS 0.4 MG TAB SUBLINGUAL PRN; -ONDANSETRON 4 MG/2 ML VIAL IVP ONE; -ONDANSETRON 4 MG/2 ML VIAL ONE; -PROPOFOL 10 MG/ML 20 ML VIAL IV ONE; -Pre Op ABX Message 1 EACH MISC MISCELLANE ONE; +RX INFO: IV CONTRAST WAS GIVEN 1 EACH MISC MISCELLANE PRN; +SODIUM CHLORIDE 0.9% 1,000 ML IV SCH; -SODIUM CHLORIDE 0.9% 100 ML BAG ONE; -SODIUM CHLORIDE 0.9% 50 ML with ceFAZolin 1,000 MG IV ONE; -SUCCINYLCHOLINE CHLORIDE 200 MG/10 ML VIAL IV ONE; -ceFAZolin 1,000 MG VIAL ONE; -ePHEDrine 50 MG/ML 1 ML VIAL ONE; -fentaNYL (PF) 50 MCG/ML 2 ML AMP IV PRN; -fentaNYL (PF) 50 MCG/ML 2 ML AMP ONE
[2024-05-19] MEDS: IV FLUID CONTINUATION 1,000 ML IV ONE (06:47)
[2024-05-19] MEDS: SODIUM CHLORIDE 0.9% 1,000 ML in EMPTY BAG 1 BAG IV SCH (06:47)
[2024-05-19 07:15] VITALS: TEMP 98.3
[2024-05-19] MEDS: ATORVASTATIN 80 MG TAB PO STA (07:18)
[2024-05-19] MEDS: ASPIRIN 325 MG TAB PO STA (07:18)
[2024-05-19] MEDS: HEPARIN SODIUM,PORCINE 10,000 UNIT in SODIUM CHLORIDE 0.9% 1,000 ML IRRIGATION ONE (07:31)
[2024-05-19] MEDS: HEPARIN SODIUM,PORCINE (1 ML) 2,500 UNIT in SODIUM CHLORIDE 0.9% 250 ML IRRIGATION ONE (07:31)
[2024-05-19] MEDS: MIDAZOLAM 2 MG/2 ML VIAL IVP ONE (07:41)
[2024-05-19] MEDS: LIDOCAINE 1% INJ 10MG/ML (20 ML MDV) SQ ONE (07:43)
[2024-05-19] MEDS: IOPAMIDOL-370 100ML BTL INJ ONE (07:58)
--- NOTE | 2024-05-19 08:01 | P.PCN ---
Date of Procedure: 05/19/24 Operative Findings: CARDIAC CATHETERIZATION PERFORMING PHYSICIAN: Olman Gresham MD, RPVI PROCEDURE PERFORMED: 1. Selective right and left coronary angiogram 2. Left heart catheterization 3. Ultrasound-guided access of the right common femoral artery and selective right common femoral artery angiogram INDICATION: Symptomatic 78-year-old female patient with abnormal myocardial perfusion imaging stress test COMPLICATION: None APPROACH: Right common femoral artery LEVEL OF SEDATION: Moderate with sedation in length of 12 minutes PROCEDURE DESCRIPTION: After obtaining an informed consent, the patient was brought to cardiac laundry laborer. Local anesthesia was performed using lidocaine subcutaneously. The right common femoral artery was cannulated using Seldinger technique, the guidewire passed easily, following that we advanced a 6 Polish sheath dilator assembly, the wire and dilator were removed and sheath was flushed. Selective right and left coronary angiogram using a 6-Polish JR4 and JL catheters. Following that we did left heart catheterization using 6-Polish pigtail catheter. The procedure was completed there was no complication. SELECTIVE CORONARY ANGIOGRAM: The right coronary artery: Large-caliber vessel and a dominant vessel with intermediate disease involving the midportion appears to be unchanged compared to before Left main: Is angiographically normal The left circumflex: Large-caliber vessel nondominant vessel appears to be angiographically normal and gives rise into the first and second obtuse marginal branches both appear to be normal The left anterior descending artery: Large-caliber vessel with intermediate disease involving the midportion also appears to be unchanged compared to before HEMODYNAMICS: The LVEDP was about 15 mmHg with no significant gradient across the aortic valve CONCLUSION: 1. 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 Previous investigation showed negative IFR 2. Intermediate disease involving the mid LAD appears to be also the same as before. Previous investigation showed negative IFR 3. Mildly elevated left-sided filling pressure POSTPROCEDURE MANAGEMENT: Medical treatment
[2024-05-19 13:58] VITALS: BP 128/63; PULSE 68; RESP 16
== END ==
LOC: CATHCVL 06:23
PROVIDERS: ATTEND Internal Medicine Interventional Cardiology
DX: I25.10 Atherosclerotic heart disease of native coronary artery without angina pectoris (principal); I35.9 Nonrheumatic aortic valve disorder, unspecified; I10 Essential (primary) hypertension; E78.5 Hyperlipidemia, unspecified; Z88.0 Allergy status to penicillin; Z88.5 Allergy status to narcotic agent; Z88.6 Allergy status to analgesic agent; Z88.8 Allergy status to other drugs, medicaments and biological substances; Z88.2 Allergy status to sulfonamides; Z79.82 Long term (current) use of aspirin; Z79.890 Hormone replacement therapy; Z79.02 Long term (current) use of antithrombotics/antiplatelets; Z79.899 Other long term (current) drug therapy
CPT/HCPCS: 93458; J2250; J1644 ×2; J2003; Q9967